=== PATIENT | female | born 1990 | race Caucasian/White ===

== ENCOUNTER 2021-02-17 15:03 | Emergency (ER) | payer MEDICAID ==
[~2021-02-17] VITALS: Ht 165.1 cm; Wt 68.7 kg
[2021-02-17] MEDS ORDERED: predniSONE 20 mg tablet PO ONE (16:00)
[2021-02-17] MEDS ORDERED: ipratropium/albuterol 3ml nebule NEB ONE (16:00)
--- NOTE | 2021-02-17 16:21 | NUR ---
rapid covid and strep swabs done
[2021-02-17] MEDS ORDERED: ALBU6.7H9 INH (17:17)
[2021-02-17] MEDS ORDERED: FLUT16SP2 BOTHNARES (17:17)
[2021-02-17] MEDS ORDERED: PRED20TA PO (17:17)
[2021-02-17 17:28] VITALS: BP 118/65
== END 2021-02-17 17:30 | disposition home or self-care (01) ==
LOC: ER 15:04
DX: J45.909 Unspecified asthma, uncomplicated (principal); Z20.822 Contact with and (suspected) exposure to COVID-19; R06.02 Shortness of breath; R05 Cough; R51.9 Headache, unspecified; Z79.899 Other long term (current) drug therapy
CPT/HCPCS: 71045; 87081; 87635; 87880; 94640; 99284; C9803; J7512; 94760

== ENCOUNTER 2023-01-21 17:17 | Emergency (ER) | payer MEDICAID ==
[~2023-01-21] VITALS: Ht 165.1 cm; Wt 79.5 kg
[~2023-01-21 17:17] MED LIST: ALBU6.7H14 INH; FLUT16SP2 BOTHNARES
[2023-01-21] MEDS ORDERED: LIDOcaine 1% W/epiNEPHrine 1:100,000 20ml vial SQ ONE (18:55)
[2023-01-21] MEDS ORDERED: TETanus/Pertussis (Acell)/Diphther VAC/PF (Tdap-Adult) 0.5ml syringe IMVAC ONE (18:55)
[2023-01-21 18:56] VITALS: BP 113/69
== END 2023-01-21 19:52 | disposition home or self-care (01) ==
LOC: ER 17:18
DX: S61.412A Laceration without foreign body of left hand, initial encounter (principal); W45.8XXA Other foreign body or object entering through skin, initial encounter; Y93.89 Activity, other specified; Y92.89 Other specified places as the place of occurrence of the external cause; Y99.8 Other external cause status
CPT/HCPCS: 12001; 82948; 90471; 90715; 99283; J7030; A6449